=== PATIENT | male | born 1970 | race Caucasian/White ===

== ENCOUNTER 2017-11-01 08:47 | Emergency (ER) | payer SELFPAY ==
[2017-11-01] MEDS ORDERED: methylPREDNISolone Sod Succ/PF 125 MG/2 ML VIAL ONE (09:24)
== END 2017-11-01 09:45 | disposition home or self-care (01) ==
LOC: MADERS 08:47
DX: J20.9 Acute bronchitis, unspecified (principal); J45.909 Unspecified asthma, uncomplicated; F17.210 Nicotine dependence, cigarettes, uncomplicated
CPT/HCPCS: 96372; J2930; J7620